=== PATIENT | female | born 1935 | race African-American/Black ===

== ENCOUNTER 2022-02-07 13:01 | Emergency (ER) | payer OTHER ==
--- OUTSIDE RECORDS SUMMARY | 2022-02-07 13:05 | XMS REPORT | Continuity of Care Document ---
:1935 Author Organization [facility] t Address [address] [place] [address] Dr. Cruz [address] [place] [address] Care Team Providers Name Role Phone DR SAM Attending Clinician Unavailable RUBEN RICHARDSON Attending Clinician Unavailable DR BRENDA Attending Clinician Unavailable DR José Miguel TRIANA Attending Clinician Unavailable Roberta GARZA Attending Clinician Unavailable DR SAM Admitting Clinician Unavailable DR BRENDA Admitting Clinician Unavailable DR José Miguel TRIANA Admitting Clinician Unavailable Roberta GARZA Admitting Clinician Unavailable Problems This patient has no known problems. Allergies, Adverse Reactions, Alerts Allergy Allergy Status Severity Reaction(s) Onset Inactive Treating Comm ents Source Name Type Date Date Clinician Aspirin DA Active Unknown [facility] Medications This patient has no known medications. Vital Signs Vital Name Observation Time Observation Value Comments Source Height 2021-04-30 09:47:00 165.1 CM Weight 2021-04-30 09:47:00 90.71 KG Procedures This patient has no known procedures. Encounters Start End Encounter Admission Attending Care Care Encounter Source Date/Time Date/Time Type Type Clinicians Facility Department ID 2021-04-30 2021-04-30 Outpatient E VANESSA VARGAS [facility] [id number] [facility] 09:46:00 11:30:00 [facility] 2020-10-26 2020-10-26 Emergency E DEMETRICE RICHARDSON FB FB [id number] FB 10:13:00 12:13:00 2018-10-23 2018-10-23 Outpatient E SHEIKH [facility] [id number] [facility] 03:21[facility]-20 2018-10-20 Outpatient E KAMILAH [facility] [id number] [facility] 09:25:00 12:35:00 [facility] Results Test Description Test Time Test Comments Results Result Comments Source XR HIP LEFT 2021-04-30 UNILATERAL 2 VWS 10:42:39 [facility] 1935 Sex: F EXAMINATION :XR PELVIS AP 1 VIEW *OW* (accession [id number]), XR HIP LEFT UNILATERAL 2 VWS *OW* (accession [id number])CLINICA L INDICATION:Female, 86 years old with Pain of left hip jointCOMPARISON: NoneFINDINGS:1 view pelvis and 2 views of the left hip were obtained.The bones are slightly demineralized. There is no acute fracture or dislocation. No focal lesion or destructive process seen. Surrounding bones and soft tissues are unremarkable.IMPRE SSION: No acute findings.Montanai keven signed by: Reny Finley MD 04/30/2021 10:42 AM CDT XR PELVIS AP 1 VIEW 2021-04-30 *OW* 10:42:39 [facility] : 1935 Sex: F EXAMINATION :XR PELVIS AP 1 VIEW *OW* (accession [id number]), XR HIP LEFT UNILATERAL 2 VWS *OW* (accession [id number])CLINICA L INDICATION:Female, 86 years old with Pain of left hip jointCOMPARISON: NoneFINDINGS:1 view pelvis and 2 views of the left hip were obtained.The bones are slightly demineralized. There is no acute fracture or dislocation. No focal lesion or destructive process seen. Surrounding bones and soft tissues are unremarkable.IMPRE SSION: No acute findings.Santhosh baca signed by: Reny Finley MD 04/30/2021 10:42 AM CDT URINALYSIS W/O MICROSCOPICOW 2021-04-30 10:40:00 Test Item Value Reference Range Interpretation Comme nts COLOR (test code = COLU) YELLOW YELLOW CLARITY (test code = CLA) CLEAR CLEAR GLUCOSE UR (test code = UA NEGATIVE NEGATIVE GLUCOSE) BILI UR (test code = BILE) NEGATIVE NEGATIVE KETONES UR (test code = LEXI) NEGATIVE NEGATIVE SP GRAVITY (test code = SPGR) 1.025 1.005-1.030 PH UR (test code = PH) 6.0 4.5-8.0 PROTEIN UR (test code = PU) 2+ NEGATIVE A NITRITE UR (test code = NITRITE) NEGATIVE NEGATIVE UROBIL UR (test code = GUROQ) 0.2 E.U./dL UROBIL UR (test code = GUROQC) UROBILINOGEN REFERENCE RANGE 0.2 - 1.0 EU/dL BLOOD UR (test code = UA BLOOD) TRACE-LYSED NEGATIVE A LEUK ES UR (test code = LEUK) TRACE NEGATIVE A TROPONIN [id number] 11:46:00 Test Item Value Reference Range Interpretation Comments TROPONIN I (test code = A84) <0.015 ng/mL 0.000-0.045 URINALYSIS W/O MICROSCOPICOW2018-10-20 10:40:00 Test Item Value Reference Range Interpretation Comments COLOR (test code = Yellow YELLOW COLU) CLARITY (test code = Clear CLEAR CLA) GLUCOSE UR (test Negative NEGATIVE code = UA GLUCOSE) BILI UR (test code = Negative NEGATIVE BILE) KETONES UR (test Negative NEGATIVE code = LEXI) SP GRAVITY (test 1.025 1.005-1.030 code = SPGR) PH UR (test code = 6.0 4.5-8.0 PH) PROTEIN UR (test 2+ NEGATIVE A code = PU) NITRITE UR (test Negative NEGATIVE code = NITRITE) UROBIL UR (test code 0.2 E.U./dL = GUROQ) UROBIL UR (test code UROBILINOGEN = GUROQC) REFERENCE RANGE 0.2 - 1.0 EU/dL BLOOD UR (test code Trace-lysed NEGATIVE = UA BLOOD) LEUK ES UR (test Negative NEGATIVE code = LEUK) BRAIN NATRIURETIC PROTEIN OW2018-10-20 10:23:00 Test Item Value Reference Range Interpretation Comments BNP (test code = OBNP) 22 pg/mL 0-50 INFLUENZA A AND B OW2018-10-20 10:09:00 Test Item Value Reference Range Interpretation Comments INFLUENZ A (test code = INFA) NEGATIVE NEGATIVE INFLUENZ B (test code = INFB) NEGATIVE NEGATIVE CHEM8+ i-STAT OW2018-10-20 10:08:00 Test Item Value Reference Range Interpretation Comments SODIUM (test code = AUGUSTIN) 140 mmol/L 138-146 POTASSIUM (test code = KI) 4.1 mmol/L 3.5-4.9 CHLORIDE (test code = CLI) 106 mmol/L 98-109 CA IONIZED (test code = ICAI) 1.27 mmol/L 1.12-1.32 GLUCOSE (test code = GLUI) 96 mg/dL 75-100 TCO2 (test code = TCO2) 23 mmol/L 24-29 L BUN (test code = BUN1) 21 mg/dL 8-26 CREATININE (test code = CREAI) 1.2 mg/dL 0.6-1.3 ANION GAP (test code = GANG) 16.0 mmol/L HGB (test code = MHB) 13.9 g/dL 12.0-17.0 HCT (test code = MHCT) 41.0 % 38.0-51.0 CBC (INCLUDES AUTOMATED DIFFERENTIAL) *2018-10-20 10:06:00 Test Item Value Reference Range Interpretation Comments WBC (test code = WBC) 4.3 10\\S\\3/uL 4.5-11.0 L RBC (test code = RBC) 4.61 10\\S\\6/uL 3.80-5.80 HGB (test code = HBG) 13.3 g/dL 12.0-15.5 HCT (test code = HCT) 39.5 % 35.0-44.0 MCV (test code = MCV) 85.7 fL 81.0-99.0 MCH (test code = MCH) 28.9 pg 27.0-31.0 MCHC (test code = MCHC) 33.7 g/dL 32.0-36.0 RDW (test code = RDW) 14.4 % 11.5-14.5 PLT (test code = PLT) 284 10\\S\\3/uL 130-400 MPV (test code = OMPV) 8.6 fL 6.2-10.2 NEUTROP # (test code = NE#) 2.1 10\\S\\3/uL 1.6-8.0 LYMPH # (test code = LY#) 1.8 10\\S\\3/uL 1.1-3.5 MID # (test code = GMID#) 0.3 10\\S\\3/uL 0.0-1.1 GRA % (test code = GRA%) 49.1 % 35.0-73.0 LYMPH % (test code = GLY%) 43.0 % 20.0-55.0 MID % (test code = GMID%) 7.9 % 0.0-10.0 XR CHEST 1 VIEW PORTABLE *OW*2018-10-20 10:02:01Portable AP chest, 1 viewLocation Code: [id number] HISTORY: [id number]: DyspneaCOMPARISON: NoneCOMMENT : The lungs are clear and well inflated. The costophrenic angles are sharp. Thecardiomediastinal silhouette is unremarkable. The bones are intact.IMPRESSION: No acute abnormalityPROTHROMBIN TIME i-STAT OW2018-10-20 10:01:00 Test Item Value Reference Range Interpretation Comments PT (test code = 11.8 s 10.0-13.0 PT1) INR (test code = 1.0 INR) INRH (test code = SUGGESTED INRH) THERAPEUTIC RANGE FOR INR: 2.5 - 3.5 For Patients with Prosthetic Valves or Patients with recurrent Thromboembolic Events 2.0 - 3.0 For Most Other Applications LACTIC ACID OW2018-10-20 10:00:00 Test Item Value Reference Range Interpretation Comments LACTATE (test code = BAO) 1.6 mmol/L 0.9-1.7 TISSUE [id number] 15:40:00Surgical Pathology Report Case: [id number] Authorizing Provider: Alexis Garza MD Collected: 09/14/2017 1135 Ordering Location: [facility] Endoscopy Received: 09/14/2017 1221 Services Pathologist: Christofer Britt MD Specimen: Stomach, BX STOMACH, BIOPSY-REACTIVE/CHEMICAL GASTROPATHY AND MILD CHRONIC INFLAMMATION- NO INTESTINAL METAPLASIA, NO DYSPLASIA AND NO MALIGNANCY IDENTIFIED- NO HELICOBACTER PYLORI ORGANISMS IDENTIFIED ON WARTHIN-STARRY STAIN Signing Pathologist Direct Phone Line: [phone] signed by Christofer Britt MD on 09/15/2017 at 3:40 [id number], [id number] painStomach biopsy The specimen is received in a formalin-filled container labeled with the patient's information and labeled "stomach biopsy" and consistsof three fragments of hughes-red soft tissue ranging from 0.1 to 0.3 cm, submitted entirely in A1. CG/ew Sections reveal fragments of benign antral mucosa with fibromuscular hyperplasia within the lamina propria along with mild reactive changes within the glandular epithelium consistent with reactive/chemical gastropathy. Mild chronic inflammation is seen within the lamina propria. No intestinal metaplasia is identified. No active gastritis is seen. No Helicobacter pylori organisms are identified on H&E and Warthin - Starry stain. Dysplasia and malignancy are not seen.The following special igna dies were performed on this case and the interpretation is incorporated in the diagnostic report above:IMMUNOHISTOCHEMISTRY/SPECIAL STAIN SUMMARY:The results of immunohistochemical studies and/or special stains are as follows: Warthin- Starry stain - No Helicobacter pylori organisms identifiedFL, UGI, AIR CONTRAST, WITHOUT [id number] 11:02:00Reason for Exam:->R10.13FINAL REPORT UGI barium study Clinical History: Epigastric pain Discussion: Effervescent crystals and barium are given to the patient to drink, without problems. The esophageal mucosa, gastroesophageal junction, stomach, duodenal bulb, duodenal c-loop, the position of the ligament of Treitz, and proximal jejunal loops are normal. Mild disorganization of the esophageal motilitywith prominent tertiary contractions seen throughout the examination. There is also delayed transit of contrast from the esophagus into the stomach. No gastroesophageal reflux is noted during the exam. 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 Signed: Marcus Fried MDReport Verified Date/Time: 09/08/2017 11:02:45 Reading Location: [address] Radiology Reading Room
--- NOTE | 2022-02-07 13:59 | RAD REPORT ---
EXAM DESCRIPTION: Rosie Single View02/07/2022 1:50 pm CLINICAL HISTORY: sob COMPARISON: none FINDINGS: The lung bases are hazy. The remainder of the lungs appear clear of acute infiltrate. The heart is normal size IMPRESSION: Lung bases are hazy. This may represent overlying soft tissue or infiltrates. PA and la teral chest series is recommended
[2022-02-07 14:26] LABS: Protime INR 0.95
[2022-02-07 14:53] LABS: Albumin 3.2 g/dL (3.4-5.0); Bilirubin Direct 0.2 mg/dL (0-0.2); Bilirubin Total 0.5 mg/dL (0.2-1.0); Protein, Total 7.3 g/dL (6.4-8.2); Troponin High Sensitivity 14.6 pg/mL (<58.9)
[2022-02-07 14:55] LABS: Potassium 4.3 mmol/L (3.5-5.1)
[2022-02-07 14:59] LABS: Absolute Lymphocytes (CBC) 1.1 K/uL (0.7-4.9); Hematocrit 36.7 % (36.0-45.0); Lymphocytes % 20.3 % (15.3-44.8); MPV 10.1 fL (7.6-11.3); RBC Red Blood Cell Count 4.36 M/uL (3.86-4.86)
--- NOTE | 2022-02-07 15:27 | RAD REPORT ---
EXAM DESCRIPTION: Rosie Pa And Lat (2 Views)02/07/2022 3:15 pm CLINICAL HISTORY: sob COMPARISON: February 07, 2022 chest x-ray FINDINGS: The lung bases are clear. The lungs appear clear of acute infiltrate. The heart is normal size. Aorta is tortuous/ectatic IMPRESSION: No acute abnormalities displayed
--- NOTE | 2022-02-07 15:47 | EDPHYS ---
Physician Documentation [facility] Name: Hailey Ambrose Age: 86 yrs Sex: Female : 1935 Arrival Date: 02/07/2022 Time: 13:05 Bed 7 Private MD: ED Physician Moo Pelletier HPI: 02/07 13:21 This 86 yrs old Black Female presents to ER via Ambulatory with complaints of Shortness pm1 Of Breath. 13:21 The patient has shortness of breath that occurred at home. Onset: The symptoms/episode pm1 began/occurred this morning. Duration: The symptoms 2-3 second duration after taking her medications this AM. The patient's shortness of breath has no apparent modifying factors. Associated signs and symptoms: Pertinent negatives: chest pain, non-productive cough, productive cough, fever, nausea, vomiting. Severity of symptoms: in the emergency department the symptoms have resolved Pain is currently a 0 / 10. The patient has been recently seen by a physician: with different complaint(s), Patient with a recent diagnosis of kidney cancer and is being treated by an oncologist in [place]. She reviewed her labs with her oncologist yesterday and the patient is concerned about her platelets and WBC level. Historical: - Allergies: 13:19 No Known Allergies; ab2 - Immunization history:: Adult Immunizations up to date. - Social history:: Smoking status: Patient denies any tobacco usage or history of. ROS: 13:21 Constitutional: Negative for fever, chills, and weight loss, Cardiovascular: Negative pm1 for chest pain, palpitations, and edema. 13:21 Abdomen/GI: Negative for abdominal pain, nausea, vomiting, diarrhea, and constipation, Back: Negative for injury and pain, MS/Extremity: Negative for injury and deformity, Skin: Negative for injury, rash, and discoloration, Neuro: Negative for headache, weakness, numbness, tingling, and seizure. 13:21 Respiratory: Positive for shortness of breath, Negative for cough. 13:21 All other systems are negative. Exam: 13:21 Constitutional: This is a well developed, well nourished patient who is awake, alert, pm1 and in no acute distress. Head/Face: Normocephalic, atraumatic. 13:21 Back: No spinal tenderness. No costovertebral tenderness. Full range of motion. Skin: Warm, dry with normal turgor. Normal color with no rashes, no lesions, and no evidence of cellulitis. MS/ Extremity: Pulses equal, no cyanosis. Neurovascular intact. Full, normal range of motion. 13:21 Cardiovascular: Exam negative for acute changes, Rate: normal, Rhythm: regular, Pulses: no pulse deficits are appreciated, Heart sounds: normal. 13:21 Respiratory: Exam negative for acute changes, respiratory distress, shortness of breath, Breath sounds: are clear throughout. 13:21 Abdomen/GI: Inspection: obese Palpation: abdomen is soft and non-tender, in all quadrants. 13:21 Neuro: Exam negative for acute changes, Orientation: is normal, Mentation: is normal, Motor: moves all fours. Vital Signs: 13:15 BP 146 / 76; Pulse 60; Resp 15; Pulse Ox 100% ; vg1 13:17 BP 155 / 66; Pulse 66; Resp 18; Temp 98.9; Pulse Ox 100% ; Weight 87.54 kg; Height 5 ab2 ft. 5 in. (165.10 cm); Pain 0/10; 13:17 Body Mass Index 32.12 (87.54 kg, 165.10 cm) ab2 MDM: 13:11 Patient medically screened. pm1 13:49 Data reviewed: vital signs. Data interpreted: Pulse oximetry: on room air is 100 %. pm1 Interpretation: normal. 15:44 Counseling: I had a detailed discussion with the patient and/or guardian regarding: the pm1 historical points, exam findings, and any diagnostic results supporting the discharge/admit diagnosis, lab results, radiology results, the need for outpatient follow up, to return to the emergency department if symptoms worsen or persist or if there are any questions or concerns that arise at home. 15:44 ED course: Patient reports history of abnormal kidney function tests since at least pm1 2003. Patient with her first ER visit in this hospital system, therefore I have no comparison labs. However patient states she is not concerned about those levels since she has had baseline elevated kidney function. She came to the ER with concerns over her WBC and platelets which are normal. Without knowledge of prior creatinine and BUN, I will give the patient NS 500 bolus, and discharge patient to follow-up with her oncologist. 15:44 ED course: Patient's shortness of breath was 2-3 seconds of duration without any other pm1 symptoms. Patient reports that her primary concern are her lab levels for wbc and platelets. PE score 0 points. 15:44 Differential diagnosis: Anxiety Reaction pneumonia, Pneumothorax pulmonary edema, pm1 Pulmonary Embolism Unstable Angina. 16:15 ED course: Patient had labs from December of this year. BUN and Cr today are at her pm1 baseline. 02/07 13:35 Order name: Chest Single View; Complete Time: 14:25 EDMS 02/07 14:20 Order name: Basic Metabolic Panel; Complete Time: 14:57 EDMS 02/07 14:20 Order name: Liver (Hepatic) Function; Complete Time: 14:57 EDMS 02/07 14:20 Order name: Troponin High Sensitivity; Complete Time: 14:57 EDMS 02/07 14:20 Order name: NT PRO-BNP; Complete Time: 14:57 EDMS 02/07 14:20 Order name: CBC with Automated Diff; Complete Time: 15:07 EDMS 02/07 14:20 Order name: Protime (+INR); Complete Time: 14:36 EDMS 02/07 13:21 Order name: EKG; Complete Time: 14:35 pm1 02/07 13:21 Order name: Cardiac monitoring; Complete Time: 13:46 pm1 02/07 13:21 Order name: EKG - Nurse/Tech; Complete Time: 13:46 pm1 02/07 13:21 Order name: Labs collected and sent; Complete Time: 14:03 pm1 02/07 13:21 Order name: O2 Per Protocol; Complete Time: 13:26 pm1 02/07 13:21 Order name: O2 Sat Monitoring; Complete Time: 13:26 pm1 02/07 14:26 Order name: Chest Pa And Lat (2 Views) XRAY; Complete Time: 15:32 pm1 Administered Medications: 16:13 Drug: NS 0.9% 500 ml Route: IV; Rate: bolus; Site: right antecubital; vg1 Disposition Summary: 02/07/22 15:47 Discharge Ordered Location: Home pm1 Problem: new pm1 Symptoms: have improved pm1 Condition: Stable pm1 Diagnosis - Shortness of breath pm1 Followup: pm1 - With: Emergency Department - When: As needed - Reason: Worsening of condition Followup: pm1 - With: Private Physician - When: 2 - 3 days - Reason: Recheck today's complaints, Continuance of care, Re-evaluation by your physician Discharge Instructions: - Discharge Summary Sheet pm1 - Shortness of Breath, Adult pm1 Forms: - Medication Reconciliation Form pm1 - Thank You Letter pm1 - Antibiotic Education pm1 - Prescription Opioid Use pm1 Addendum: 02/12/2022 18:59 Co-signature as Attending Physician, Moo Pelletier MD I agree with the assessment and c alaniz plan of care. Signatures: Dispatcher [employer] EDMS Moo Pelletier MD MD cha Marinas, Patrick, DISPLAY MANAGER DISPLAY MANAGER pm1 Bella Chucrh RN RN vg1 Dominguez Boswell ab2 Corrections: (The following items were deleted from the chart) 02/07 14:45 14:35 Chest Single View+RAD.RAD.BRZ ordered. EDMS EDMS 14:47 14:35 PROTIME (+INR)+COAG.LAB.BRZ ordered. EDMS EDMS 14:48 14:35 BASIC METABOLIC PANEL+C.LAB.BRZ ordered. EDMS EDMS 14:48 14:35 CBC+H.LAB.BRZ ordered. EDMS EDMS 14:48 14:35 HEPATIC FUNCTION+C.LAB.BRZ ordered. EDMS EDMS 14:48 14:35 PROBNP+C.LAB.BRZ ordered. EDMS EDMS 14:48 14:35 Troponin High Sensitivity+C.LAB.BRZ ordered. EDMS EDMS
--- NOTE | 2022-02-07 15:47 | ER ---
Nurse's Notes [facility] Name: Hailey Ambrose Age: 86 yrs Sex: Female : 1935 Arrival Date: 02/07/2022 Time: 13:05 Bed 7 Private MD: Diagnosis: Shortness of breath Presentation: 02/07 13:17 Chief complaint: Patient states: "I started getting SOB after breakfast this morning. I ab2 also want to check my WBC and platelet count because my Doctor told me they were low." Pt was recently diagnosed with kidney cancer. Coronavirus screen: Vaccine status: Patient reports receiving the 1st dose of the Covid vaccine. Client denies travel out of the [place] in the last 14 days. At this time, the client does not indicate any symptoms associated with coronavirus-19. Ebola Screen: Patient negative for fever greater than or equal to 101.5 degrees Fahrenheit, and additional compatible Ebola Virus Disease symptoms Patient denies exposure to infectious person. Patient denies travel to an Ebola-affected area in the 21 days before illness onset. No symptoms or risks identified at this time. Initial Sepsis Screen: Does the patient meet any 2 criteria? No. Patient's initial sepsis screen is negative. Does the patient have a suspected source of infection? No. Patient's initial sepsis screen is negative. Risk Assessment: Do you want to hurt yourself or someone else? Patient reports no desire to harm self or others. Onset of symptoms is unknown. 13:17 Method Of Arrival: Ambulatory ab2 13:17 Acuity: LEONARDO 3 ab2 Triage Assessment: 13:20 General: Appears in no apparent distress. comfortable, Behavior is calm, cooperative, ab2 appropriate for age. Pain: Denies pain. Cardiovascular: Denies chest pain, Patient's skin is warm and dry. Respiratory: Reports shortness of breath at rest Airway is patent Respiratory effort is even, unlabored, Respiratory pattern is regular, symmetrical, Onset: The symptoms/episode began/occurred this morning, the patient reports symptoms have resolved. Respiratory: Breath sounds are clear bilaterally. GI: No deficits noted. No signs and/or symptoms were reported involving the gastrointestinal system. : No deficits noted. No signs and/or symptoms were reported regarding the genitourinary system. Derm: Skin is healthy with good turgor, Skin is pink, warm \\T\\ dry. Historical: - Allergies: 13:19 No Known Allergies; ab2 - Immunization history:: Adult Immunizations up to date. - Social history:: Smoking status: Patient denies any tobacco usage or history of. Screenin:20 Abuse screen: Denies threats or abuse. Denies injuries from another. Nutritional ab2 screening: No deficits noted. Tuberculosis screening: No symptoms or risk factors identified. Fall Risk None identified. Assessment: 13:19 Pain: Denies pain. Respiratory: Airway is patent Respiratory effort is even, unlabored, ab2 Respiratory pattern is regular, symmetrical, 13:20 General: Appears in no apparent distress. comfortable, Behavior is calm, cooperative. vg1 Pain: Denies pain. Neuro: Level of Consciousness is awake, alert, obeys commands, Oriented to person, place, time, situation. Cardiovascular: Patient's skin is warm and dry. Rhythm is sinus bradycardia. Respiratory: Airway is patent Respiratory effort is even, unlabored, Breath sounds are clear bilaterally. GI: No signs and/or symptoms were reported involving the gastrointestinal system. : No signs and/or symptoms were reported regarding the genitourinary system. EENT: No signs and/or symptoms were reported regarding the EENT system. Derm: Skin is intact, is healthy with good turgor. Musculoskeletal: Circulation, motion, and sensation intact. 14:30 Reassessment: Patient appears in no apparent distress at this time. No changes from vg1 previously documented assessment. Patient and/or family updated on plan of care and expected duration. Pain level reassessed. Patient is alert, oriented x 3, equal unlabored respirations, skin warm/dry/pink. 15:30 Reassessment: Patient appears in no apparent distress at this time. Patient and/or vg1 family updated on plan of care and expected duration. Pain level reassessed. Patient is alert, oriented x 3, equal unlabored respirations, skin warm/dry/pink. 16:01 Reassessment: pt up for d/c, currently waiting for IV fluids to complete. vg1 Vital Signs: 13:15 BP 146 / 76; Pulse 60; Resp 15; Pulse Ox 100% ; vg1 13:17 BP 155 / 66; Pulse 66; Resp 18; Temp 98.9; Pulse Ox 100% ; Weight 87.54 kg; Height 5 ab2 ft. 5 in. (165.10 cm); Pain 0/10; 13:17 Body Mass Index 32.12 (87.54 kg, 165.10 cm) ab2 ED Course: 13:05 Patient arrived in ED. mr 13:11 Kory Jesus, ANAT is PHCP. pm1 13:11 Moo Pelletier MD is Attending Physician. pm1 13:13 Bella Church, RN is Primary Nurse. vg1 13:19 Triage completed. ab2 13:20 Arm band placed on right wrist. ab2 13:21 Patient has correct armband on for positive identification. Bed in low position. Call ab2 light in reach. Side rails up X2. Adult w/ patient. 13:21 No provider procedures requiring assistance completed. ab2 13:40 Missed attempt(s): 22 gauge in right forearm. vg1 13:50 Missed attempt(s): 24 gauge in left forearm. vg1 13:52 Chest Single View In Process Unspecified. EDMS 15:17 Chest Pa And Lat (2 Views) XRAY In Process Unspecified. EDMS Administered Medications: 16:13 Drug: NS 0.9% 500 ml Route: IV; Rate: bolus; Site: right antecubital; vg1 Outcome: 15:47 Discharge ordered by MD. pm1 17:14 Patient left the ED. ph Signatures: Dispatcher [employer] EDPA Jennings, Karen VuongShannon, RN RN ph Kory Jesus, ANAT SEARCH MARKETING SPECIALIST pm1 Bella Church, RN RN vg1 Dominguez Boswell ab2 Corrections: (The following items were deleted from the chart) 15:14 15:14 Reassessment: Patient appears in no apparent distress at this time. No changes vg1 from previously documented assessment. Patient and/or family updated on plan of care and expected duration. Pain level reassessed. Patient is alert, oriented x 3, equal unlabored respirations, skin warm/dry/pink. vg1
[2022-02-07] MEDS ORDERED: NA CHLORIDE 0.9% 500 ML ONE (16:07)
[2022-02-07 17:17] VITALS: O2SAT 100
[2022-02-07 17:19] VITALS: BP 155/66; TEMP 98.9
--- NOTE | 2022-02-09 09:42 | EKG ---
Test Date: 2022-02-07 Test Time: 13:31:02 Business Executive: ANAMARIA MEASUREMENT RESULTS: Intervals: Rate: 52 CT: 138 QRSD: 74 QT: 392 QTc: 364 [place]: P: 46 CT: 138 QRS: 4 T: 26 INTERPRETIVE STATEMENTS: Sinus bradycardia Minimal voltage criteria for LVH, may be normal variant Borderline ECG No previous ECG available for comparison Electronically Signed On 02-09-22 09:36:05 CDT by Jose Miguel Santos
== END 2022-02-07 17:14 | disposition home or self-care (01) ==
LOC: ER 13:01
DX: R06.02 Shortness of breath (principal)
CPT/HCPCS: 93005; 85025; 80048; 36415; 85610; 80076; 84484; 83880; 71045; 71046; 99284; J7040

== ENCOUNTER 2022-02-16 11:11 | Emergency (ER) | payer MEDICARE ==
--- OUTSIDE RECORDS SUMMARY | 2022-02-16 11:14 | XMS REPORT | Continuity of Care Document ---
:1935 Author Organization [facility] t Address [address] [place] [address] [address]. [address] [place] [address] Care Team Providers Name Role Phone DR SAM Attending Clinician Unavailable DR BRENDA Attending Clinician [...] Date Date Clinician Aspirin DA Active Unknown [facility] Medications This patient has no known medications. Vital Signs Vital Name Observation Time Observation Value Comments Source Height 2021-04-30 09:47:00 165.1 CM Weight 2021-04-30 09:47:00 90.71 KG Procedures This patient has no known procedures. Encounters Start End Encounter Admission Attending Care Care Encounter Source Date/Time Date/Time Type Type Clinicians Facility Department ID 2021-04-30 2021-04-30 [place] E [place] [id number] [facility] 09:46:00 11:30:00 [facility] [place] 2018-10-23 2018-10-23 Outpatient E [place] [facility] [id number] [facility] 03:21:00 04:10:00 [facility] 2018-10-20 2018-10-20 Outpatient [facility] [id number] [facility] 09:25:00 12:35:00 [facility] Results Test Description Test Time Test Comments Results Result Comments Source XR HIP LEFT 2021-04-30 UNILATERAL 2 VWS 10:42:39 [facility] 1935 Sex: F EXAMINATION :XR PELVIS AP 1 VIEW *OW* (accession [id number]), XR HIP LEFT UNILATERAL 2 VWS *OW* (accession [id number])CLINICA L INDICATION:Female, 86 years old with Pain of left hip jointCOMPARISON: NoneFINDINGS:1 view pelvis and 2 views of the left hip were obtained.The bones are slightly demineralized. There is no acute fracture or dislocation. No focal lesion or destructive process seen. Surrounding bones and soft tissues are unremarkable.IMPRE SSION: No acute findings.Electroni keven signed by: Reny Finley MD 04/30/2021 10:42 AM CDT XR PELVIS AP 1 VIEW 2021-04-30 *OW* 10:42:39 [facility] 1935 Sex: F EXAMINATION :XR PELVIS AP 1 VIEW *OW* (accession [id number]), XR HIP LEFT UNILATERAL 2 VWS *OW* (accession [id number])CLINICA L INDICATION:Female, 86 years old with Pain [...] code = LEUK) TRACE NEGATIVE A TROPONIN [id number] 11:46:00 Test Item Value Reference Range Interpretation [...] *OW*2018-10-20 10:02:01Portable AP chest, 1 viewLocation Code: [id number] HISTORY: [id number]: DyspneaCOMPARISON: NoneCOMMENT : The lungs are clear [...] code = BAO) 1.6 mmol/L 0.9-1.7 TISSUE [id number] 15:40:00Surgical Pathology Report Case: [id number] Authorizing Provider: Alexis Garza MD Collected: 09/14/2017 1135 Ordering Location: [facility] Endoscopy Received: 09/14/2017 1221 Services Pathologist: Christofer Britt MD Specimen: Stomach, BX STOMACH, BIOPSY-REACTIVE/CHEMICAL GASTROPATHY AND MILD CHRONIC INFLAMMATION- NO INTESTINAL METAPLASIA, NO DYSPLASIA AND NO MALIGNANCY IDENTIFIED- NO HELICOBACTER PYLORI ORGANISMS IDENTIFIED ON WARTHIN-STARRY STAIN Signing Pathologist Direct Phone Line: [phone] signed by Christofer Britt MD on 09/15/2017 at 3:40 [id number], [id number] painStomach biopsy The specimen is received in [...] and malignancy are not seen.The following special gina dies were performed on this case and the interpretation is incorporated in the diagnostic report above:IMMUNOHISTOCHEMISTRY/SPECIAL STAIN SUMMARY:The results of immunohistochemical studies and/or special stains are as follows: Warthin- Starry stain - No Helicobacter pylori organisms identifiedFL, UGI, AIR CONTRAST, WITHOUT [id number] 11:02:00Reason for Exam:->R10.13FINAL REPORT UGI barium study [...] MDReport Verified Date/Time: 09/08/2017 11:02:45 Reading Location: [address] Radiology Reading Room
--- NOTE | 2022-02-16 11:54 | EDPHYS ---
Physician Documentation [facility] Name: Hailey Ambrose Age: 86 yrs Sex: Female : 1935 Arrival Date: 02/16/2022 Time: 11:12 Bed DIS5 Private MD: ED Physician Joel Reece HPI: 02/16 11:53 This 86 yrs old Black Female presents to ER via Ambulatory with complaints of Allergic pm1 Reaction - to Medication. 11:53 Onset: The symptoms/episode began/occurred today. Associated signs and symptoms: pm1 Pertinent negatives: fever, headache, hives, rash, shortness of breath, swelling, vomiting. Possible causes: At home the patient or guardian has treated the symptoms with nothing. Severity of symptoms: in the emergency department the symptoms are unchanged. The patient has not experienced similar symptoms in the past. The patient has not recently seen a physician. Patient reports possible allergic reaction to a new medication. Patient's reported symptom is a bump to her left lower gums that is painful. Historical: - Allergies: 12:02 No Known Allergies; ll1 - PMHx: 12:02 Hypertensive disorder; ll1 - PSHx: 12:02 Unable to Obtain; ll1 - Immunization history:: Client reports receiving the 2nd dose of the Covid vaccine. - Social history:: Smoking status: Patient denies any tobacco usage or history of. ROS: 11:53 Constitutional: Negative for fever, chills, and weight loss. pm1 11:53 Neck: Negative for injury, pain, and swelling, Cardiovascular: Negative for chest pain, palpitations, and edema, Respiratory: Negative for shortness of breath, cough, wheezing, and pleuritic chest pain, Abdomen/GI: Negative for abdominal pain, nausea, vomiting, diarrhea, and constipation, MS/Extremity: Negative for injury and deformity, Skin: Negative for injury, rash, and discoloration, Neuro: Negative for headache, weakness, numbness, tingling, and seizure. 11:53 ENT: Positive for bump on her gums, Negative for sore throat, difficulty swallowing, difficulty handling secretions, hoarseness. 11:53 All other systems are negative. Exam: 11:53 Constitutional: This is a well developed, well nourished patient who is awake, alert, pm1 and in no acute distress. Head/Face: Normocephalic, atraumatic. 11:53 Back: No spinal tenderness. No costovertebral tenderness. Full range of motion. Skin: Warm, dry with normal turgor. Normal color with no rashes, no lesions, and no evidence of cellulitis. MS/ Extremity: Pulses equal, no cyanosis. Neurovascular intact. Full, normal range of motion. 11:53 Eyes: Exam is negative for acute changes, Periorbital structures: appear normal, Pupils: no acute changes, Extraocular movements: no acute changes, Conjunctiva: no acute changes, no injection. 11:53 ENT: Dental exam: abscess, specifically in the lower left first bicuspid (#21), small and all pus expressed with pressure to surrounding area. 11:53 Cardiovascular: Exam negative for acute changes, Rate: normal, Rhythm: regular, Pulses: no pulse deficits are appreciated. 11:53 Respiratory: Exam negative for acute changes, respiratory distress, shortness of breath. 11:53 Neuro: Exam negative for acute changes, Orientation: is normal, Mentation: is normal, Motor: is normal, moves all fours. Vital Signs: 12:00 BP 145 / 67; Pulse 68; Resp 16; Temp 97.6; Pulse Ox 97% ; Pain 4/10; ll1 MDM: 11:52 Counseling: I had a detailed discussion with the patient and/or guardian regarding: the pm1 historical points, exam findings, and any diagnostic results supporting the discharge/admit diagnosis, the need for outpatient follow up, for definitive care, a dentist, to return to the emergency department if symptoms worsen or persist or if there are any questions or concerns that arise at home. 11:53 Patient medically screened. pm1 12:00 Data reviewed: vital signs. Data interpreted: Pulse oximetry: on room air is 97 %. pm1 Interpretation: normal. Administered Medications: No medications were administered Disposition: 21:30 Co-signature as Attending Physician, Joel HENAO was immediately available on-site ms3 in the Emergency Department for consultation in the care of the patient.. Disposition Summary: 02/16/22 11:53 Discharge Ordered Location: Home pm1 Problem: new pm1 Symptoms: have improved pm1 Condition: Stable pm1 Diagnosis - Periapical abscess without sinus pm1 Followup: pm1 - With: Emergency Department - When: As needed - Reason: Worsening of condition Followup: pm1 - With: Private Physician - When: 2 - 3 days - Reason: Recheck today's complaints, Continuance of care, Re-evaluation by your physician Discharge Instructions: - Discharge Summary Sheet pm1 - Dental Abscess pm1 Forms: - Medication Reconciliation Form pm1 - Thank You Letter pm1 - Antibiotic Education pm1 - Prescription Opioid Use pm1 Prescriptions: - Augmentin 875-125 mg Oral Tablet - take 1 tablet by ORAL route every 12 hours for 10 days; 20 tablet; Refills: 0, pm1 Product Selection Permitted - Tramadol 50 mg Oral Tablet - take 1 tablet by ORAL route every 8 hours as needed; 12 tablet; Refills: 0, pm1 Product Selection Permitted Signatures: Kory Jesus NP DURABILITY ENGINEER pm1 Liza Jaime RN RN ll1 Joel Reece DO DO ms3
--- NOTE | 2022-02-16 12:04 | ER ---
Nurse's Notes [facility] Name: Hailey Ambrose Age: 86 yrs Sex: Female : 1935 Arrival Date: 02/16/2022 Time: 11:12 Bed DIS5 Private MD: Diagnosis: Periapical abscess without sinus Presentation: 02/16 12:00 Chief complaint: Patient states: L lower jaw pain and swelling. Thinks it might be a ll1 reaction to her chemo meds. Coronavirus screen: Vaccine status: Patient reports receiving the 2nd dose of the covid vaccine. Client denies travel out of the [place] in the last 14 days. At this time, the client does not indicate any symptoms associated with coronavirus-19. Ebola Screen: Patient denies travel to an Ebola-affected area in the 21 days before illness onset. Onset: The symptoms/episode began/occurred gradually. Anaphylaxis evaluation, no signs or symptoms of anaphylaxis were noted. Initial Sepsis Screen: Does the patient meet any 2 criteria? No. Patient's initial sepsis screen is negative. Does the patient have a suspected source of infection? Yes: Other: gum pain/swelling. Risk Assessment: Do you want to hurt yourself or someone else? Patient reports no desire to harm self or others. Onset of symptoms is unknown. 12:00 Method Of Arrival: Ambulatory ll1 12:00 Acuity: LEONARDO 4 ll1 Triage Assessment: 12:02 General: Appears uncomfortable, Behavior is calm, cooperative, appropriate for age. ll1 Pain: Complains of pain in L jaw Quality of pain is described as aching. EENT: Reports pain in left jaw. Historical: - Allergies: 12:02 No Known Allergies; ll1 - PMHx: 12:02 Hypertensive disorder; ll1 - PSHx: 12:02 Unable to Obtain; ll1 - Immunization history:: Client reports receiving the 2nd dose of the Covid vaccine. - Social history:: Smoking status: Patient denies any tobacco usage or history of. Screenin:03 Abuse screen: Denies threats or abuse. Nutritional screening: No deficits noted. ll1 Tuberculosis screening: No symptoms or risk factors identified. Fall Risk Total Valenzuela Fall Scale indicates No Risk (0-24 pts). Assessment: 12:03 Respiratory: Airway is patent Respiratory effort is even, unlabored, Breath sounds are ll1 clear bilaterally. Vital Signs: 12:00 BP 145 / 67; Pulse 68; Resp 16; Temp 97.6; Pulse Ox 97% ; Pain 4/10; ll1 ED Course: :12 Patient arrived in ED. ds1 11:29 [facility] pm1 11:29 Joel Reece DO is Attending Physician. pm1 12:02 Triage completed. ll1 12:02 Arm band placed on Patient placed in an exam room, on a stretcher. ll1 12:03 Patient has correct armband on for positive identification. Bed in low position. ll1 12:03 No provider procedures requiring assistance completed. Patient did not have IV access ll1 during this emergency room visit. Administered Medications: No medications were administered Outcome: :53 Discharge ordered by MD. pm1 12:03 Discharged to home ambulatory. ll1 12:03 Condition: stable 12:03 Discharge instructions given to patient, family, Instructed on discharge instructions, follow up and referral plans. no drinking with medication, no driving heavy equipment, medication usage, Demonstrated understanding of instructions, follow-up care, medications, Prescriptions given X 2. 12:03 Patient left the ED. ll1 Signatures: Alina Lopez ds1 Kory Jesus NP REGISTERED ACCOUNT ADMINISTRATOR pm1 Liza Jaime RN RN ll1
[2022-02-16 12:09] VITALS: BP 145/67; TEMP 97.6; O2SAT 97
== END 2022-02-16 12:03 | disposition home or self-care (01) ==
LOC: ER 11:11
DX: K04.7 Periapical abscess without sinus (principal); I10 Essential (primary) hypertension
CPT/HCPCS: 99282

== ENCOUNTER 2022-05-12 09:22 | Emergency (ER) | payer OTHER ==
--- NOTE | 2022-05-12 10:53 | RAD REPORT ---
EXAM DESCRIPTION: Rosie Hilton And Natasha (2 Views)05/12/2022 10:16 am CLINICAL HISTORY: Cough COMPARISON: January 2022 FINDINGS: The lungs appear clear of acute infiltrate. The heart is normal size IMPRESSION: No acute abnormalities displayed
[2022-05-12 11:23] LABS: Protime INR 1.06
[2022-05-12 11:24] LABS: Absolute Lymphocytes (CBC) 0.8 K/uL (0.7-4.9); Hematocrit 34.4 % (36.0-45.0); Lymphocytes % 27.1 % (15.3-44.8); MCV 87.1 fL (80-100); MPV 10.4 fL (7.6-11.3); RBC Red Blood Cell Count 3.95 M/uL (3.86-4.86)
[2022-05-12 11:41] LABS: Albumin 2.9 g/dL (3.4-5.0); Bilirubin Total 0.8 mg/dL (0.2-1.0); Potassium 4.4 mmol/L (3.5-5.1); Protein, Total 6.1 g/dL (6.4-8.2); Troponin High Sensitivity 14.8 pg/mL (<58.9)
--- NOTE | 2022-05-12 12:11 | ER ---
Nurse's Notes [facility] Name: Hailey Ambrose Age: 87 yrs Sex: Female : 1935 Arrival Date: 05/12/2022 Time: 09:24 Bed 20 Private MD: Diagnosis: Acute upper respiratory infection, unspecified-presumptive coronavirus Presentation: 05/12 09:49 Chief complaint: Patient states: she started feeling short winded with a cold last ap3 night. Patient reports her neighbor came to visit over the weekend who ended up coming down with COVID. Patient is also complaining of body aches and runny nose. Coronavirus screen: Client presents with at least one sign or symptom that may indicate coronavirus-19. Standard/surgical mask placed on the client. Ebola Screen: No symptoms or risks identified at this time. Initial Sepsis Screen: Does the patient meet any 2 criteria? No. Patient's initial sepsis screen is negative. Does the patient have a suspected source of infection? No. Patient's initial sepsis screen is negative. Risk Assessment: Do you want to hurt yourself or someone else? Patient reports no desire to harm self or others. Onset of symptoms was May 11, 2022. 09:49 Method Of Arrival: Ambulatory ap3 09:49 Acuity: LEONARDO 3 ap3 Triage Assessment: 09:56 General: Appears in no apparent distress. Behavior is calm, cooperative. Pain: ap3 Complains of pain in chest and generalized body aches. Neuro: Level of Consciousness is awake, alert, obeys commands, Oriented to person, place, time, Gait is steady. Cardiovascular: Reports chest pain, Patient's skin is warm and dry. Respiratory: Reports cough that is Airway is patent. Respiratory: Respiratory effort is even, unlabored. Historical: - Allergies: 09:54 No Known Allergies; ap3 - PMHx: 09:54 Hypertensive disorder; Kidney disease; kidney cancer; ap3 - Immunization history:: Client reports having NOT received the Covid vaccine. - Social history:: Smoking status: Patient denies any tobacco usage or history of. Screenin:57 Abuse screen: Denies threats or abuse. Nutritional screening: No deficits noted. ap3 Tuberculosis screening: No symptoms or risk factors identified. 11:04 Fall Risk Secondary diagnosis (15 points) impaired mobility. tw2 Assessment: 11:05 General: Appears in no apparent distress. slender, well groomed, Behavior is calm, tw2 cooperative, appropriate for age. Pain: Denies pain. Pain does not radiate. Pain began last night. Neuro: Level of Consciousness is awake, alert, obeys commands, Oriented to person, place, time, situation. Cardiovascular: Patient's skin is warm and dry. Respiratory: Reports shortness of breath at rest. GI: No signs and/or symptoms were reported involving the gastrointestinal system. EENT: Reports nasal discharge that is watery Parent/caregiver reports the patient having. 12:12 Reassessment: Patient appears in no apparent distress at this time. No changes from tw2 previously documented assessment. Patient and/or family updated on plan of care and expected duration. Pain level reassessed. Patient is alert, oriented x 3, equal unlabored respirations, skin warm/dry/pink. 12:31 Reassessment: Patient appears in no apparent distress at this time. No changes from tw2 previously documented assessment. Patient and/or family updated on plan of care and expected duration. Pain level reassessed. Patient is alert, oriented x 3, equal unlabored respirations, skin warm/dry/pink. Vital Signs: 09:49 BP 121 / 69; Pulse 61; Resp 17; Temp 97.9; Pulse Ox 99% ; Weight 86.18 kg; Height 5 ft. ap3 5 in. (165.10 cm); 11:15 BP 129 / 56; Pulse 56; Resp 16; Pulse Ox 100% on R/A; tw2 12:11 BP 127 / 58; Pulse 55; Resp 17; Pulse Ox 100% on R/A; tw2 09:49 Body Mass Index 31.62 (86.18 kg, 165.10 cm) ap3 ED Course: 09:24 Patient arrived in ED. rg4 09:34 Kory Jesus NP is PHCP. pm1 09:34 Atilio Tyler MD is Attending Physician. pm1 09:54 Triage completed. ap3 09:57 Patient maintains SpO2 saturation greater than 95% on room air. ap3 09:57 Arm band placed on right wrist. ap3 10:15 Bed in low position. Call light in reach. quality assurance monitor on. Pulse ox on. NIBP on. tw2 10:18 Chest Pa And Lat (2 Views) XRAY In Process Unspecified. EDMS 10:36 Bess Timmons, RN is Primary Nurse. tw2 11:00 Missed attempt(s): 20 gauge in right forearm. Bleeding controlled, band aid applied, tw2 catheter tip intact. Missed attempt(s): 22 gauge in right forearm. notified JESSICA Roman of need for IV at this time.. Bleeding controlled, band aid applied, catheter tip intact. 11:25 Inserted saline lock: 22 gauge in left forearm, using aseptic technique. ,using aseptic tw2 technique. JESSICA De Jesus Blood collected. 12:31 No provider procedures requiring assistance completed. IV discontinued, intact, tw2 bleeding controlled, No redness/swelling at site. Pressure dressing applied. Administered Medications: 12:20 Drug: Tussionex Pennkinetic ER (chlorpheniramine-hydrocodone) Suspension 5 ml Route: PO;tw2 12:31 Follow up: Response: No adverse reaction tw2 Medication: 11:06 VIS not applicable for this client. tw2 Outcome: 12:10 Discharge ordered by MD. pm1 12:32 Discharged to home ambulatory, with significant other. tw2 12:32 Condition: stable 12:32 Discharge instructions given to patient, significant other, Instructed on discharge instructions, follow up and referral plans. Demonstrated understanding of instructions, follow-up care, medications, Prescriptions given X 1. 12:32 Patient left the ED. tw2 Signatures: Dispatcher [employer] EDNM Kory Jesus, ANAT OFFAL WORKER pm1 Bess Timmons, JESSICA RN tw2 Rubia Church 4 Blanquita Calvert RN RN ap3
--- NOTE | 2022-05-12 12:11 | EDPHYS ---
Physician Documentation [facility] Name: Hailey Ambrose Age: 87 yrs Sex: Female : 1935 Arrival Date: 05/12/2022 Time: 09:24 Bed 20 Private MD: ED Physician Atilio Tyler HPI: 05/12 10:09 This 87 yrs old Black Female presents to ER via Ambulatory with complaints of Chest pm1 Pain, Runny Nose. 10:09 The patient or guardian reports chest pain that is located primarily in the mid-sternal pm1 area. Onset: yesterday. The pain does not radiate. Associated signs and symptoms: Pertinent positives: cough, shortness of breath, runny nose, Pertinent negatives: nausea, vomiting. The chest pain is described as sharp. Duration: The patient or guardian reports a single episode. Modifying factors: the symptoms are aggravated by cough. Severity of pain: in the emergency department the pain is unchanged. The patient has not experienced similar symptoms in the past. The patient has not recently seen a physician. with URI last week but she is concerned that she may have covid. Historical: - Allergies: 09:54 No Known Allergies; ap3 - PMHx: 09:54 Hypertensive disorder; Kidney disease; kidney cancer; ap3 - Immunization history:: Client reports having NOT received the Covid vaccine. - Social history:: Smoking status: Patient denies any tobacco usage or history of. ROS: 10:09 Constitutional: Negative for fever, chills, and weight loss. pm1 10:09 Abdomen/GI: Negative for abdominal pain, nausea, vomiting, diarrhea, and constipation, Back: Negative for injury and pain, MS/Extremity: Negative for injury and deformity, Skin: Negative for injury, rash, and discoloration. 10:09 ENT: Positive for rhinorrhea. 10:09 Cardiovascular: Positive for chest pain, Negative for edema, palpitations. 10:09 Respiratory: Positive for cough, shortness of breath. 10:09 All other systems are negative. Exam: 10:09 Constitutional: This is a well developed, well nourished patient who is awake, alert, pm1 and in no acute distress. Head/Face: Normocephalic, atraumatic. 10:09 Back: No spinal tenderness. No costovertebral tenderness. Full range of motion. pm1 Skin: Warm, dry with normal turgor. Normal color with no rashes, no lesions, and no evidence of cellulitis. MS/ Extremity: Pulses equal, no cyanosis. Neurovascular intact. Full, normal range of motion. 10:09 Eyes: Exam is negative for acute changes, Extraocular movements: no acute changes, Conjunctiva: no acute changes, no injection. 10:09 Cardiovascular: Exam negative for acute changes, Rate: bradycardic, Rhythm: regular, Pulses: no pulse deficits are appreciated. 10:09 Respiratory: Exam negative for acute changes, respiratory distress, shortness of breath, Breath sounds: are clear throughout. 10:09 Abdomen/GI: Inspection: abdomen appears normal, Palpation: abdomen is soft and non-tender, in all quadrants. 10:09 Neuro: Exam negative for acute changes, Orientation: is normal, Mentation: is normal, Motor: is normal, moves all fours. Vital Signs: 09:49 BP 121 / 69; Pulse 61; Resp 17; Temp 97.9; Pulse Ox 99% ; Weight 86.18 kg; Height 5 ft. ap3 5 in. (165.10 cm); 11:15 BP 129 / 56; Pulse 56; Resp 16; Pulse Ox 100% on R/A; tw2 12:11 BP 127 / 58; Pulse 55; Resp 17; Pulse Ox 100% on R/A; tw2 09:49 Body Mass Index 31.62 (86.18 kg, 165.10 cm) ap3 MDM: 10:03 Patient medically screened. pm1 12:01 ED course: Discussed with the patient the current findings and we are still pending the pm1 covid test. Discussed with the patient that her history of cancer and shortness of breath makes me consider PE as a differential. Patient reports that her shortness of breath is inability to get phlegm up. Patient does not want a PE CT test and actually wants to go home now because her , who is also in the ER was just diagnosed with covid. She would like me to call her later with the results. Informed the patient that if her shortness of breath worsens that she should return for reevaluation and possible CT chest at that time. Patient refused possible treatment for covid, monoclonal antibodies and paxlovid. 12:01 Data reviewed: vital signs. Data interpreted: Pulse oximetry: on room air is 99 %. pm1 Interpretation: normal. 12:01 Counseling: I had a detailed discussion with the patient and/or guardian regarding: the pm1 historical points, exam findings, and any diagnostic results supporting the discharge/admit diagnosis, lab results. 05/12 10:02 Order name: Troponin High Sensitivity; Complete Time: 11:54 pm05/12 10:02 Order name: CBC with Diff; Complete Time: 11:33 pm05/12 10:02 Order name: CMP; Complete Time: 11:54 pm05/12 10:02 Order name: COVID-19 SARS RT PCR (Document "Date of Onset" if Symptomatic) pm1 05/12 10:02 Order name: Flu; Complete Time: 11:54 pm05/12 10:02 Order name: Strep; Complete Time: 11:33 pm05/12 10:02 Order name: Chest Pa And Lat (2 Views) XRAY; Complete Time: 11:18 pm05/12 10:31 Order name: IV Saline Lock; Complete Time: 11:16 pm05/12 10:31 Order name: PT-INR; Complete Time: 11:33 pm1 05/12 10:32 Order name: EKG; Complete Time: 10:33 pm1 05/12 10:32 Order name: EKG - Nurse/Tech; Complete Time: 11:04 pm05/12 11:33 Order name: Throat Culture EDMS EC:06 Rate is 54 beats/min. Rhythm is regular, Sinus bradycardia with No ectopy. QRS [place] is pm1 Normal. ND interval is normal. QRS interval is normal. QT interval is normal. No Q waves. T waves are Normal. No ST changes noted. Clinical impression: Sinus bradycardia. Administered Medications: 12:20 Drug: Tussionex Pennkinetic ER (chlorpheniramine-hydrocodone) Suspension 5 ml Route: PO;tw2 12:31 Follow up: Response: No adverse reaction tw2 Disposition: 18:48 Co-signature as Attending Physician, Atilio Tyler MD. rn Disposition Summary: 05/12/22 12:10 Discharge Ordered Location: Home pm1 Problem: new pm1 Symptoms: have improved pm1 Condition: Stable pm1 Diagnosis - Acute upper respiratory infection, unspecified - presumptive coronavirus pm1 Followup: pm1 - With: Emergency Department - When: As needed - Reason: Worsening of condition Followup: pm1 - With: Private Physician - When: 2 - 3 days - Reason: Recheck today's complaints, Continuance of care, Re-evaluation by your physician Discharge Instructions: - Discharge Summary Sheet pm1 - Upper Respiratory Infection, Adult pm1 - COVID-19 pm1 - COVID-19 Frequently Asked Questions pm1 - COVID-19: Quarantine vs. Isolation - [facility] [place] pm1 Forms: - Medication Reconciliation Form pm1 - Thank You Letter pm1 - Antibiotic Education pm1 - Prescription Opioid Use pm1 Prescriptions: - Guaifenesin AC 10-100 mg/5 mL Oral Liquid - take 10 milliliters by ORAL route every 4 hours As needed; 240 milliliter; pm1 Refills: 0, Product Selection Permitted Signatures: Dispatcher [employer] EDMS Atilio Tyler MD MD rn Marinas, Patrick, SENIOR BUSINESS DEVELOPMENT ANALYST SENIOR BUSINESS DEVELOPMENT ANALYST pm1 Bess Timmons RN RN tw2 Blanquita Calvert RN RN ap3 Corrections: (The following items were deleted from the chart) 12:09 12:01 ED course: Discussed with the patient the current findings and we are still pm1 pending the covid test. Discussed with the patient that her history of cancer and shortness of breath makes me consider PE as a differential. Patient reports that her shortness of breath is inability to get phlegm up. Patient does not want a PE CT test and actually wants to go home now because her , who is also in the ER was just diagnosed with covid. She would like me to call her later with the results. Informed the patient that if her shortness of breath worsens that she should return for reevaluation and possible CT chest at that time. pm1
[2022-05-12] MEDS ORDERED: HYDROCODONE/CHLORPHEN 5 ML/OSYR ONE (12:34)
[2022-05-12 12:38] VITALS: TEMP 97.9
[2022-05-12 12:41] VITALS: O2SAT 100
[2022-05-12 12:43] VITALS: BP 127/58
--- NOTE | 2022-05-13 07:52 | EKG ---
Test Date: 2022-05-12 Test Time: 11:04:03 Football Coach: JASE MEASUREMENT RESULTS: Intervals: Rate: 54 [place]: 138 QRSD: 82 QT: 416 QTc: 394 [place]: P: 59 [place]: 138 QRS: 26 T: 53 INTERPRETIVE STATEMENTS: Sinus bradycardia Otherwise normal ECG Compared to ECG 02/07/2022 13:31:02 Left ventricular hypertrophy no longer present Electronically Signed On 05-13-22 07:48:33 CDT by Jose Miguel Santos
== END 2022-05-12 12:32 | disposition home or self-care (01) ==
LOC: ER 09:22
DX: J06.9 Acute upper respiratory infection, unspecified (principal); R07.89 Other chest pain; R09.89 Other specified symptoms and signs involving the circulatory and respiratory systems; R06.02 Shortness of breath; I10 Essential (primary) hypertension; N28.9 Disorder of kidney and ureter, unspecified; U07.1 COVID-19
CPT/HCPCS: 93005; 87070; 85025; 36415; 85610; 87081; 84484; 80053; 87804 ×2; 71046; U0003; 99285

== ENCOUNTER → 2023-12-03 | Emergency (ER) | payer OTHER ==
[~2023-12-03] MED LIST: CYCLOBENZAPRINE 10 MG TAB ONE; FAMOTIDINE 20 MG/2 ML VIAL IV ONE; NA CHLORIDE 0.9% 1,000 ML ONE
--- NOTE | 2023-12-03 14:14 | RAD REPORT ---
EXAM DESCRIPTION: CT - Head Brain Wo Cont - 12/03/2023 2:00 pm CLINICAL HISTORY: Head injury status post fall COMPARISON: none TECHNIQUE: Computed axial tomography of the head was obtained. IV contrast was not requested. All CT scans are performed using dose optimization technique as appropriate and may include automated exposure control or mA/KV adjustment according to patient size. FINDINGS: An intracranial bleed is not seen The ventricles are normal in caliber No significant hypodense areas within the brain visualized No extra-axial fluid collection is noted. Fluid within the sinuses/ mastoids is not seen IMPRESSION: No acute intracranial abnormality is seen If patient's symptoms persist MRI of the brain would be recommended
[2023-12-03 14:38] LABS: Absolute Lymphocytes (CBC) 1.8 K/uL (0.7-4.9); Hematocrit 37.9 % (36.0-45.0); Lymphocytes % 15.6 % (15.3-44.8); MCV 89.6 fL (80-100); MPV 8.3 fL (7.6-11.3); Platelets 191 thou/uL (152-406); RBC Red Blood Cell Count 4.23 M/uL (3.86-4.86)
[2023-12-03 14:55] LABS: Albumin 2.9 g/dL (3.4-5.0); Bilirubin Direct 0.2 mg/dL (0-0.2); Bilirubin Indirect, Calculated 0.2 mg/dL (0.2-0.8); Bilirubin Total 0.4 mg/dL (0.2-1.0); Troponin High Sensitivity 8.6 pg/mL (<58.9)
[2023-12-03 14:56] LABS: Magnesium 2.3 mg/dL (1.6-2.4)
--- NOTE | 2023-12-03 15:00 | RAD REPORT ---
EXAM DESCRIPTION: FRANKYHumbertot Single View12/03/2023 2:21 pm CLINICAL HISTORY: Chest pain COMPARISON: 2021 FINDINGS: The lungs appear clear of acute infiltrate. The heart is normal size Dilatation of descending thoracic aorta without significant change
[2023-12-03 15:15] LABS: SARS-COV-2 RT PCR NEGATIVE (NEGATIVE)
[2023-12-03 15:46] LABS: Specific Gravity 1.016 (1.005-1.030); Urine Bacteria None Seen /HPF (<20); Urine Bilirubin NEGATIVE (Negative); Urine Blood Negative (Negative); Urine Clarity Clear (Clear); Urine Color Light-Yellow (Yellow); Urine Glucose NEGATIVE (Negative); Urine Mucus Slight /HPF (None Seen); Urine Protein 1+ (Negative); Urine RBC <5 /HPF (None Seen); Urine Urobilinogen Normal (Normal)
--- NOTE | 2023-12-03 16:57 | ER ---
Nurse's Notes [facility] Name: Hailey Ambrose Age: 88 yrs Sex: Female : 1935 Arrival Date: 12/03/2023 Time: 13:18 Bed 6 Private MD: Diagnosis: Orthostatic hypotension;Fall on same level from slipping, tripping and stumbling without subsequent striking against object Presentation: 12/03 13:41 Chief complaint: Chief complaint: Patient states: "I fell straight back on Wednesday aa5 and I hit my head, I was doing fine but today my whole back hurts and when I look down I see carla flashing colors". 13:47 Coronavirus screen: At this time, the client does not indicate any symptoms associated aa5 with coronavirus-19. Ebola Screen: Patient denies travel to an Ebola-affected area in the 21 days before illness onset. Initial Sepsis Screen: Does the patient meet any 2 criteria? No. Patient's initial sepsis screen is negative. Does the patient have a suspected source of infection? No. Patient's initial sepsis screen is negative. Risk Assessment: Do you want to hurt yourself or someone else? Patient reports no desire to harm self or others. Onset of symptoms was November 2023. 13:47 Acuity: LEONARDO 3 aa5 13:47 Method Of Arrival: Wheelchair aa5 Historical: - Allergies: 14:00 No Known Allergies; rs5 - PMHx: 13:47 Hypertensive disorder; kidney cancer; kidney disease; aa5 - PSHx: 14:00 None; rs5 - Immunization history:: Adult Immunizations up to date. - Social history:: Smoking status: Patient denies any tobacco usage or history of. Screenin:45 [facility] ED Fall Risk Assessment (Adult) History of falling in the last 3 months, rs5 including since admission No falls in past 3 months (0 pts) Confusion or Disorientation No (0 pts) Intoxicated or Sedated No (0 pts) Impaired Gait Yes (1 pt) Mobility Assist Device Used Yes (1 pt) Altered Elimination No (0 pt) Score/Fall Risk Level 0 - 2 = Low Risk Oriented to surroundings, Maintained a safe environment. 13:45 Abuse screen: Denies threats or abuse. Nutritional screening: No deficits noted. rs5 Tuberculosis screening: No symptoms or risk factors identified. Assessment: 13:45 General: Appears in no apparent distress. comfortable, Behavior is calm, cooperative. rs5 Pain: Complains of pain in right low back Pain radiates to right leg Pain currently is 3 out of 10 on a pain scale. Quality of pain is described as aching, Pain began 2-3 days ago. Is continuous, Aggravated by increased activity, repositioning. Neuro: Level of Consciousness is awake, alert, obeys commands, Oriented to person, place, time, situation. Cardiovascular: Heart tones S1 S2 present Patient's skin is warm and dry. Rhythm is regular. Respiratory: Airway is patent Respiratory effort is even, labored, Respiratory pattern is regular, symmetrical, Breath sounds are clear bilaterally. 13:45 GI: Abdomen is round non-distended, Bowel sounds present X 4 quads. Abd is soft and non rs5 tender X 4 quads. : No signs and/or symptoms were reported regarding the genitourinary system. EENT: No signs and/or symptoms were reported regarding the EENT system. Derm: Skin is intact, Skin is dry, Skin is normal, Skin temperature is warm. Musculoskeletal: Range of motion: intact in all extremities. 14:50 Reassessment: No changes from previously documented assessment. rs5 16:01 Reassessment: Patient and/or family updated on plan of care and expected duration. Pain rs5 level reassessed. Patient is alert, oriented x 3, equal unlabored respirations, skin warm/dry/pink. Vital Signs: 13:47 BP 134 / 77; Pulse 82; Resp 16 S; Temp 98.3(O); Pulse Ox 99% on R/A; aa5 14:50 BP 130 / 85 Supine; Pulse 79; Resp 17; Pulse Ox 100% on R/A; bc6 14:50 BP 125 / 71 Sitting; Pulse 79; Resp 16; Pulse Ox 100% on R/A; bc6 14:50 BP 98 / 63 Standing; Pulse 93; Resp 17; Pulse Ox 100% on R/A; bc6 16:09 BP 128 / 80; Pulse 80; Resp 14; Pulse Ox 99% ; ko1 ED Course: 13:21 Patient arrived in ED. mg5 13:30 Priya Ni PA-C is PHCP. sb4 13:30 Joel Reece DO is Attending Physician. sb4 13:41 Arm band placed on. aa5 13:45 Patient has correct armband on for positive identification. Placed in gown. Bed in low rs5 position. Call light in reach. Side rails up X2. 13:48 Triage completed. aa5 13:51 Lissy Loera, RN is Primary Nurse. ko1 14:01 CT Head Brain wo Cont In Process Unspecified. EDMS 14:23 Chest Single View XRAY In Process Unspecified. EDMS 14:33 Basic Metabolic Panel Sent. ko1 14:33 CBC with Diff Sent. ko1 14:33 Hepatic Function Sent. ko1 14:33 Magnesium Sent. ko1 14:33 Troponin High Sensitivity Sent. ko1 14:33 Inserted saline lock: 20 gauge in right forearm, using aseptic technique. rs5 14:36 COVID-19/FLU A+B/RSV Sent. ko1 16:16 No provider procedures requiring assistance completed. rs5 17:20 Provided Education on: follow up. as6 17:20 IV discontinued, intact, bleeding controlled, No redness/swelling at site. Pressure as6 dressing applied. Administered Medications: 14:35 Drug: Cyclobenzaprine PO 10 mg PO once Route: PO; ko1 17:14 Follow up: Response: No adverse reaction as6 15:16 Drug: NS 0.9% IV 1000 ml IV at 1 bolus Per protocol; 1000 mL bolus Route: IV; Rate: 1 rs5 bolus; Site: right forearm; 17:13 Follow up: Response: No adverse reaction; IV Status: Completed infusion; IV Intake: as6 1000ml 16:50 Drug: Famotidine IVP 20 mg IVP once; dilute with 10 mL 0.9% NaCl; give over 2 minutes rs5 Route: IVP; Site: right forearm; 17:13 Follow up: Response: No adverse reaction as6 Medication: 16:16 VIS not applicable for this client. rs5 Intake: 17:13 IV: 1000ml; Total: 1000ml. as6 Outcome: 16:57 Discharge ordered by . sb4 17:21 Discharged to home ambulatory, with significant other, as6 17:21 Condition: stable 17:22 Discharge instructions given to patient, significant other, Instructed on discharge as6 instructions, follow up and referral plans. medication usage, Demonstrated understanding of instructions, follow-up care, medications, Prescriptions given X 2, 17:23 Patient left the ED. as6 Signatures: Dispatcher [employer] EDLeila Orozco RN RN aa5 Low Walker RN RN as6 Lissy Loera RN RN Priya Hook, PAAma PAmAa sb4 Faustino Fontaine RN RN rs5 Kelsey Torres 6 Mary Call mg5 Corrections: (The following items were deleted from the chart) 13:48 13:41 Chief complaint: aa5 aa5
--- NOTE | 2023-12-03 16:58 | EDPHYS ---
Physician Documentation [facility] Name: Hailey Ambrose Age: 88 yrs Sex: Female : 1935 Arrival Date: 12/03/2023 Time: 13:18 Bed 6 Private MD: ED Physician Joel Reece HPI: 12/03 13:49 This 88 yrs old Black Female presents to ER via Wheelchair with complaints of Fall sb4 Injury. 13:49 Details of fall: The patient fell from an upright position, while standing. Onset: The sb4 symptoms/episode began/occurred 2 day(s) ago. Associated injuries: The patient sustained injury to the head. 14:09 patient states that she went to open the refrigerator, missed the handle, and fell sb4 backwards onto her head. she did not lose consciousness or have any significant pain. states that today she woke up feeling stiff, weak, and experiencing pain in her entire back. also reports seeing strange colors when she looks down. Historical: - Allergies: 14:00 No Known Allergies; rs5 - PMHx: 13:47 Hypertensive disorder; kidney cancer; kidney disease; aa5 - PSHx: 14:00 None; rs5 - Immunization history:: Adult Immunizations up to date. - Social history:: Smoking status: Patient denies any tobacco usage or history of. ROS: 14:09 Constitutional: Negative for fever, chills, and weight loss, sb4 14:09 Back: Positive for pain at rest, pain with movement, 14:09 Neuro: Positive for visual changes, 14:09 All other systems are negative, Exam: 14:09 Constitutional: This is a well developed, well nourished patient who is awake, alert, sb4 and in no acute distress. Head/Face: Normocephalic, atraumatic. Eyes: Extra-ocular motions intact. Periorbital areas with no swelling, redness, or edema. ENT: Mucous membranes moist. Cardiovascular: Regular rate and rhythm with a normal S1 and S2. Respiratory: Lungs have equal breath sounds bilaterally, clear to auscultation and percussion. No rales, rhonchi or wheezes noted. No increased work of breathing, no retractions or nasal flaring. Abdomen/GI: Soft, non-tender, no distension. Skin: Warm, dry with normal turgor. Normal color with no rashes, no lesions, and no evidence of cellulitis. MS/ Extremity: Pulses equal, no cyanosis. Neurovascular intact. Full, normal range of motion. Neuro: Awake and alert, GCS 15, oriented to person, place, time, and situation. Motor strength 5/5 in all extremities. Sensory grossly intact. 14:09 Back: pain, that is mild, of the left scapular area, right scapular area, left subscapular area, right subscapular area, left low back, left mid back, right mid back and right low back, ROM is normal, normal spinal alignment noted, CVA tenderness, is absent, vertebral tenderness, is not appreciated, muscle spasm, is not present, Straight leg raises: of both lower extremities does not illicit pain, Vital Signs: 13:47 BP 134 / 77; Pulse 82; Resp 16 S; Temp 98.3(O); Pulse Ox 99% on R/A; aa5 14:50 BP 130 / 85 Supine; Pulse 79; Resp 17; Pulse Ox 100% on R/A; bc6 14:50 BP 125 / 71 Sitting; Pulse 79; Resp 16; Pulse Ox 100% on R/A; bc6 14:50 BP 98 / 63 Standing; Pulse 93; Resp 17; Pulse Ox 100% on R/A; bc6 16:09 BP 128 / 80; Pulse 80; Resp 14; Pulse Ox 99% ; ko1 MDM: 13:41 Patient medically screened. sb4 14:09 Differential diagnosis: closed head injury, contusion, fracture, sprain, strain. sb4 16:57 Data reviewed: vital signs, nurses notes, lab test result(s), EKG, radiologic studies, sb4 and as a result, I will discharge patient. Counseling: I had a detailed discussion with the patient and/or guardian regarding the historical points, exam findings, and any diagnostic results supporting the discharge/admit diagnosis, lab results, radiology results, to return to the emergency department if symptoms worsen or persist or if there are any questions or concerns that arise at home. 12/03 13:48 Order name: Basic Metabolic Panel; Complete Time: 15:02 sb4 12/03 13:48 Order name: CBC with Diff; Complete Time: 14:51 sb4 12/03 13:48 Order name: Hepatic Function; Complete Time: 15:02 sb4 12/03 13:48 Order name: Magnesium; Complete Time: 15:02 sb4 12/03 13:48 Order name: Troponin High Sensitivity; Complete Time: 15:02 sb4 12/03 13:48 Order name: COVID-19/FLU A+B/RSV; Complete Time: 15:16 sb4 12/03 13:48 Order name: UAM; Complete Time: 15:56 sb4 12/03 13:48 Order name: CT Head Brain wo Cont; Complete Time: 14:14 sb4 12/03 13:48 Order name: Chest Single View XRAY; Complete Time: 15:02 sb4 12/03 13:48 Order name: EKG; Complete Time: 13:49 sb4 12/03 13:48 Order name: Cardiac monitoring; Complete Time: 14:05 sb4 12/03 13:48 Order name: EKG - Nurse/Tech; Complete Time: 14:50 sb4 12/03 13:48 Order name: IV Saline Lock; Complete Time: 14:33 sb4 12/03 13:48 Order name: Labs collected and sent; Complete Time: 14:33 sb4 12/03 13:48 Order name: O2 Per Protocol; Complete Time: 14:05 sb4 12/03 13:48 Order name: O2 Sat Monitoring; Complete Time: 14:05 sb4 12/03 13:48 Order name: Orthostatics; Complete Time: 14:50 sb4 12/03 16:40 Order name: Misc. Order: ambulate; Complete Time: 16:50 sb4 EC:50 Rate is 73 beats/min. Rhythm is regular, Normal Sinus Rhythm. [place] interval is normal at sb4 160 msec. QRS interval is normal at 70 msec. QT interval is normal at 370 msec. No Q waves. T waves are Normal. No ST changes noted. Clinical impression: Normal ECG and No evidence of ischemia. Interpreted by me. Reviewed by me. Administered Medications: 14:35 Drug: Cyclobenzaprine PO 10 mg PO once Route: PO; ko1 17:14 Follow up: Response: No adverse reaction as6 15:16 Drug: NS 0.9% IV 1000 ml IV at 1 bolus Per protocol; 1000 mL bolus Route: IV; Rate: 1 rs5 bolus; Site: right forearm; 17:13 Follow up: Response: No adverse reaction; IV Status: Completed infusion; IV Intake: as6 1000ml 16:50 Drug: Famotidine IVP 20 mg IVP once; dilute with 10 mL 0.9% NaCl; give over 2 minutes rs5 Route: IVP; Site: right forearm; 17:13 Follow up: Response: No adverse reaction as6 Disposition: 14:54 I was immediately available on-site in the Emergency Department for consultation in the ms3 care of the patient. Disposition Summary: 12/03/23 16:57 Discharge Ordered Notes: Location: Home sb4 Problem: new sb4 Symptoms: are unchanged sb4 Condition: Stable sb4 Diagnosis - Orthostatic hypotension sb4 - Fall on same level from slipping, tripping and stumbling without subsequent sb4 striking against object Followup: sb4 - With: Emergency Department - When: As needed - Reason: Trouble breathing, Worsening of condition Discharge Instructions: - Discharge Summary Sheet sb4 - Orthostatic Hypotension sb4 - Fall Prevention in the Home, Adult, [id number] sb4 Forms: - Medication Reconciliation Form sb4 - Thank You Letter sb4 - Antibiotic Education sb4 - Prescription Opioid Use sb4 - Patient Portal Instructions sb4 - Leadership Thank You Letter sb4 Prescriptions: - Hydroxyzine HCl 25 mg Oral tablet - take 1 tablet ORAL route once daily at bedtime As needed; 30 tablet; Refills: sb4 0, Product Selection Permitted Signatures: Dispatcher [employer] Leila Larson, RN RN aa5 Joel Reece DO DO ms3 Lissy Loera RN RN koPriya Albright PAAma PAAma sb4 Faustino Fontaine RN RN rs5 Low Walker RN as6
[2023-12-03 18:04] VITALS: BP 98/63; TEMP 98.3; O2SAT 100
--- NOTE | 2023-12-06 15:08 | EKG ---
Test Date: 2023-12-03 Test Time: 14:46:26 Call Center Supervisor: JAD MEASUREMENT RESULTS: Intervals: Rate: 73 [place]: 160 QRSD: 70 QT: 370 QTc: 407 [place]: P: 65 [place]: 160 QRS: -12 T: 69 INTERPRETIVE STATEMENTS: Normal sinus rhythm Normal ECG Compared to ECG 05/12/2022 11:04:03 Sinus bradycardia no longer present Electronically Signed On 12-06-23 15:02:05 COPYWRITING INTERN by Alejandro Wilcox
== END ==
LOC: ER 13:18
DX: I95.1 Orthostatic hypotension (principal); M54.9 Dorsalgia, unspecified; W01.0XXA Fall on same level from slipping, tripping and stumbling without subsequent striking against object, initial encounter; Z11.52 Encounter for screening for COVID-19
CPT/HCPCS: 85025; 81001; 80048; 36415; 83735; 80076; 84484; 0241U; 70450; 71045; J7030; 93005

== ENCOUNTER → 2023-12-21 | Emergency (ER) | payer OTHER ==
[~2023-12-21] MED LIST changes: -FAMOTIDINE 20 MG/2 ML VIAL IV ONE; +HYDROCODONE/APAP 5/325 MG TAB ONE; -NA CHLORIDE 0.9% 1,000 ML ONE
--- NOTE | 2023-12-21 09:34 | RAD REPORT ---
EXAM DESCRIPTION: CT - Spine Lumbar Wo Con - 12/21/2023 9:25 am CLINICAL HISTORY: Radiculopathy. PAIN COMPARISON: No comparisons TECHNIQUE: Axial noncontrast CT imaging of the lumbar spine was performed with coronal and sagittal re-formatted images. All CT scans are performed using dose optimization technique as appropriate and may include automated exposure control or mA/KV adjustment according to patient size. FINDINGS: No acute lumbar spine fracture seen. No aggressive marrow pattern or malalignment. Paraspinal tissues are normal in thickness. No paraspinal abscess or hematoma seen. Posterior disc bulges are present lower lumbar levels. Vacuum disc degeneration at L2-3 and L3-4. Sma ll endplate osteophytes are present L2-3 and L3-4. Moderate central canal narrowing is seen at L3-4. Surgically absent left kidney. IMPRESSION: No acute lumbar spine finding. 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
--- NOTE | 2023-12-21 09:57 | RAD REPORT ---
EXAM DESCRIPTION: RAD - Knee Right 3 View - 12/21/2023 9:44 am CLINICAL HISTORY: PAIN COMPARISON: No comparisons FINDINGS: Mild tricompartmental arthritic changes are present. No fracture, dislocation or joint eff usion.
--- NOTE | 2023-12-21 09:57 | RAD REPORT ---
EXAM DESCRIPTION: RAD - Knee Left 3 View - 12/21/2023 9:44 am CLINICAL HISTORY: PAIN COMPARISON: No comparisons FINDINGS: Moderate tricompartmental osteoarthritis is present, greatest medially. No fracture, dislo cation or joint effusion.
--- NOTE | 2023-12-21 10:36 | EDPHYS ---
Physician Documentation [facility] Name: Hailey Ambrose Age: 88 yrs Sex: Female : 1935 Arrival Date: 12/21/2023 Time: 08:54 Bed 4 Private MD: Alyssa Sanchez ED Physician Goyo Cole HPI: 12/21 09:20 This 88 yrs old Black Female presents to ER via Ambulatory with complaints of Facial rt Injury, Back Pain. 09:20 Patient presents to the ED about 2 weeks following a fall. Patient states that she has rt had back pain, tingling sensation to her right knee since the fall. States that the pain to the back has worsened. Is unclear if she had imaging of her back. States that Motrin, Tylenol not adequately relieved her symptoms. Pain is aching nature, nonradiating, no other aggravating or alleviating factors.. Historical: - Allergies: 09:14 No Known Allergies; ll1 - PMHx: 09:14 Hypertensive disorder; kidney cancer; kidney disease; ll1 - Immunization history:: Adult Immunizations up to date. - Social history:: Smoking status: Patient denies any tobacco usage or history of. ROS: 09:20 Constitutional: Negative for fever, chills, and weight loss, Cardiovascular: Negative rt for chest pain, palpitations, and edema, Respiratory: Negative for shortness of breath, cough, wheezing, and pleuritic chest pain, Abdomen/GI: Negative for abdominal pain, nausea, vomiting, diarrhea, and constipation, Skin: Negative for injury, rash, and discoloration, Neuro: Negative for headache, weakness, numbness, tingling, and seizure, Psych: Negative for depression, anxiety, suicide ideation, homicidal ideation, and hallucinations, 09:20 Back: Positive for pain at rest, pain with movement, 09:20 MS/extremity: Positive for pain, Negative for contusion, Exam: 09:20 Constitutional: This is a well developed, well nourished patient who is awake, alert, rt and in no acute distress. Head/Face: Normocephalic, atraumatic. Chest/axilla: Normal chest wall appearance and motion. Nontender with no deformity. No lesions are appreciated. Cardiovascular: Regular rate and rhythm with a normal S1 and S2. No gallops, murmurs, or rubs. Normal PMI, no JVD. No pulse deficits. Respiratory: Lungs have equal breath sounds bilaterally, clear to auscultation and percussion. No rales, rhonchi or wheezes noted. No increased work of breathing, no retractions or nasal flaring. Abdomen/GI: Soft, non-tender, with normal bowel sounds. No distension or tympany. No guarding or rebound. No evidence of tenderness throughout. Skin: Warm, dry with normal turgor. Normal color with no rashes, no lesions, and no evidence of cellulitis. Neuro: Awake and alert, GCS 15, oriented to person, place, time, and situation. Cranial nerves II-XII grossly intact. Motor strength 5/5 in all extremities. Sensory grossly intact. Cerebellar exam normal. Normal gait. Psych: Awake, alert, with orientation to person, place and time. Behavior, mood, and affect are within normal limits. 09:20 Neck: No posterior cervical midline tenderness, 09:20 Back: Midline tenderness to the lower lumbar region, no paraspinal tenderness, step-offs, no thoracic tenderness, 09:20 Musculoskeletal/extremity: No swelling, deformity, tenderness to palpation to the right knee. Vital Signs: 09:14 BP 123 / 107; Pulse 84; Resp 17; Temp 97.4; Pulse Ox 98% on R/A; Weight 80.74 kg; ll1 Height 5 ft. 5 in. ; Pain 9/10; 09:51 BP 125 / 62; Pulse 78; Resp 18; Pulse Ox 99% on R/A; ph 09:14 Body Mass Index 29.62 (80.74 kg, 165.1 cm) ll1 09:14 Pain Scale: Adult ll1 MDM: 09:07 Patient medically screened. rt 10:49 Differential diagnosis: Compression fracture, disc bulge, muscle spasm. Data reviewed: rt vital signs, nurses notes, radiologic studies. Independent interpretation of the following test(s) in the Emergency Department CT Scan: My interpretation is No fracture seen on interpretation of x-ray, CT scan images. Care significantly affected by the following chronic conditions: Hypertension. Counseling: I had a detailed discussion with the patient and/or guardian regarding the historical points, exam findings, and any diagnostic results supporting the discharge/admit diagnosis, radiology results, the need for outpatient follow up, to return to the emergency department if symptoms worsen or persist or if there are any questions or concerns that arise at home. Response to treatment: the patient's symptoms have markedly improved after treatment. 12/21 09:15 Order name: Knee Right 3 View XRAY; Complete Time: 09:59 rt 12/21 09:15 Order name: CT Lumbar Spine Wo Con; Complete Time: 09:59 rt 12/21 09:34 Order name: Knee Left 3 View XRAY; Complete Time: :59 rt Administered Medications: 09:46 Drug: Island PO 5 mg-325 mg 1 tabs PO once Route: PO; ph 09:46 Drug: Cyclobenzaprine PO 5 mg PO once Route: PO; ph Disposition Summary: 12/21/23 10:35 Discharge Ordered Notes: Location: Home rt Problem: new rt Symptoms: have improved rt Condition: Stable rt Diagnosis - Low back pain rt - Bilateral knee pain rt Followup: rt - With: Private Physician - When: 2 - 3 days - Reason: Discharge Instructions: - Discharge Summary Sheet rt - Acute Back Pain, Adult rt - Acute Knee Pain, Adult rt Forms: - Medication Reconciliation Form rt - Thank You Letter rt - Antibiotic Education rt - Prescription Opioid Use rt - Patient Portal Instructions rt - Leadership Thank You Letter rt Prescriptions: - Tramadol 50 mg Oral Tablet - take 1 tablet ORAL route every 8 hours as needed; 12 tablet; Refills: 0, rt Product Selection Permitted - Cyclobenzaprine 5 mg Oral Tablet - take 1 tablet ORAL route 3 times per day As needed; 15 tablet; Refills: 0, rt Product Selection Permitted Signatures: Dispatcher [employer] Shannon Gamboa RN RN Liza Calles RN RN 1 Goyo Cole MD MD rt
--- NOTE | 2023-12-21 10:36 | ER ---
Nurse's Notes [facility] Name: Hailey Ambrose Age: 88 yrs Sex: Female : 1935 Arrival Date: 12/21/2023 Time: 08:54 Bed 4 Private MD: Alyssa Sanchez Diagnosis: Low back pain;Bilateral knee pain Presentation: 12/21 09:14 Chief complaint: Patient states: Back and R knee still hurts from her fall 2 weeks ago. ll1 Come here after accident, Aleve and Tylenol not helping. Coronavirus screen: Client denies travel out of the [place] in the last 14 days. At this time, the client does not indicate any symptoms associated with coronavirus-19. Ebola Screen: Patient denies travel to an Ebola-affected area in the 21 days before illness onset. Initial Sepsis Screen: Does the patient meet any 2 criteria? No. Patient's initial sepsis screen is negative. Does the patient have a suspected source of infection? No. Patient's initial sepsis screen is negative. Risk Assessment: Do you want to hurt yourself or someone else? Patient reports no desire to harm self or others. Onset of symptoms was December 03, 2023. 09:14 Method Of Arrival: Ambulatory ll1 09:14 Acuity: LEONARDO 3 ll1 Historical: - Allergies: 09:14 No Known Allergies; ll1 - PMHx: 09:14 Hypertensive disorder; kidney cancer; kidney disease; ll1 - Immunization history:: Adult Immunizations up to date. - Social history:: Smoking status: Patient denies any tobacco usage or history of. Screenin:41 [facility] ED Fall Risk Assessment (Adult) History of falling in the last 3 months, ph including since admission Yes- single mechanical fall (1 pt) Confusion or Disorientation No (0 pts) Intoxicated or Sedated No (0 pts) Impaired Gait Yes (1 pt) Mobility Assist Device Used Yes (1 pt) Altered Elimination No (0 pt) Score/Fall Risk Level 3 or more points = High Risk Oriented to surroundings, Maintained a safe environment, Provided non-skid footwear, Hourly rounding (assess needs \T\ fall precautionary measures) done, Used ambulatory aids as needed (educated on \T\ assisted with). Abuse screen: Denies threats or abuse. Denies injuries from another. Nutritional screening: No deficits noted. Tuberculosis screening: No symptoms or risk factors identified. Assessment: 09:50 General: Appears in no apparent distress. Behavior is calm, cooperative, appropriate ph for age. Pain: Complains of pain in back and right and left knees. Neuro: Level of Consciousness is awake, alert, obeys commands, Oriented to person, place, time, situation. Cardiovascular: Capillary refill < 3 seconds in bilateral fingers Patient's skin is warm and dry. Respiratory: Airway is patent Respiratory effort is even, unlabored, Respiratory pattern is regular, symmetrical. Derm: Skin is pink, warm \T\ dry. Vital Signs: 09:14 BP 123 / 107; Pulse 84; Resp 17; Temp 97.4; Pulse Ox 98% on R/A; Weight 80.74 kg; ll1 Height 5 ft. 5 in. ; Pain 9/10; 09:51 BP 125 / 62; Pulse 78; Resp 18; Pulse Ox 99% on R/A; ph 09:14 Body Mass Index 29.62 (80.74 kg, 165.1 cm) ll1 09:14 Pain Scale: Adult ll1 ED Course: 08:57 Patient arrived in ED. mr 08:58 Alyssa Sanchez is Private Physician. mr 08:58 Goyo Cole MD is Attending Physician. rt 09:13 Arm band placed on Patient placed in an exam room, on a stretcher. ll1 09:15 Triage completed. ll1 09:26 CT Lumbar Spine Wo Con In Process Unspecified. EDMS 09:29 Shannon Vuong, RN is Primary Nurse. ph 09:42 Patient has correct armband on for positive identification. Placed in gown. Bed in low ph position. Call light in reach. Side rails up X2. Pulse ox on. NIBP on. Door closed. Noise minimized. Warm blanket given. 09:46 Knee Right 3 View XRAY In Process Unspecified. EDMS 09:46 Knee Left 3 View XRAY In Process Unspecified. EDMS 10:50 No provider procedures requiring assistance completed. Patient did not have IV access ph during this emergency room visit. Administered Medications: 09:46 Drug: Ethel PO 5 mg-325 mg 1 tabs PO once Route: PO; ph 09:46 Drug: Cyclobenzaprine PO 5 mg PO once Route: PO; ph Medication: 09:41 VIS not applicable for this client. ph Outcome: 10:35 Discharge ordered by MD. rt 10:50 Discharged to home ambulatory, ph 10:50 Condition: good 10:50 Discharge instructions given to patient, Instructed on discharge instructions, follow up and referral plans. medication usage, Demonstrated understanding of instructions, follow-up care, medications, Prescriptions given X 2, 10:51 Patient left the ED. ph Signatures: Dispatcher [employer] EDMO Karen Jennings, Reg Reg mr Shannon Vuong RN RN ph Liza Jaime RN RN ll1 Goyo Cole MD MD rt Corrections: (The following items were deleted from the chart) 09:16 09:14 Onset of symptoms was December 07, 2023 [facility] ll
[2023-12-21 11:14] VITALS: BP 125/62; TEMP 97.4; O2SAT 99
== END ==
LOC: ER 08:54
DX: M54.50 Low back pain, unspecified (principal); M25.562 Pain in left knee; M25.561 Pain in right knee
CPT/HCPCS: 72131

== ENCOUNTER → 2024-01-19 | Emergency (ER) | payer OTHER ==
--- NOTE | 2024-01-19 10:00 | ER ---
Nurse's Notes [facility] Name: Hailey Ambrose Age: 88 yrs Sex: Female : 1935 Arrival Date: 01/19/2024 Time: 08:14 Bed 20 Private MD: Diagnosis: Pain in left foot Presentation: 01/18 08:40 Chief complaint: Patient states: L leg goes out, feels weak, and numb at times for ll1 awhile now. Fell again, wants to be checked. Coronavirus screen: Client denies travel out of the [place] in the last 14 days. At this time, the client does not indicate any symptoms associated with coronavirus-19. Ebola Screen: Patient denies travel to an Ebola-affected area in the 21 days before illness onset. Initial Sepsis Screen: Does the patient meet any 2 criteria? No. Patient's initial sepsis screen is negative. Does the patient have a suspected source of infection? No. Patient's initial sepsis screen is negative. Risk Assessment: Do you want to hurt yourself or someone else? Patient reports no desire to harm self or others. Onset of symptoms was January 11, 2024. 08:40 Method Of Arrival: Wheelchair ll1 08:40 Acuity: LEONARDO 3 ll1 Triage Assessment: 08:40 General: Appears uncomfortable, Behavior is calm, cooperative, appropriate for age. ll1 Pain: Complains of pain in left leg Quality of pain is described as aching. Musculoskeletal: Circulation, motion, and sensation intact. Capillary refill < 3 seconds, Reports weakness in left leg numbness in left leg pain in left leg. Injury Description: Bruise. Historical: - Allergies: 08:39 No Known Allergies; ll1 - PMHx: 08:39 Hypertensive disorder; kidney cancer; kidney disease; ll1 08:39 myeloma; ll1 - Immunization history:: Adult Immunizations up to date. - Social history:: Smoking status: Patient denies any tobacco usage or history of. Assessment: 09:17 General: Appears in no apparent distress. comfortable, Behavior is calm, cooperative. nj1 Pain: Denies pain. Neuro: Level of Consciousness is awake, alert, obeys commands, Oriented to person, place, time, situation. Cardiovascular: Patient's skin is warm and dry. Respiratory: Airway is patent Respiratory effort is even, unlabored. Vital Signs: 08:40 BP 99 / 56; Pulse 75; Resp 16; Temp 97.6; Pulse Ox 98% ; Weight 77.11 kg; Height 5 ft. ll1 5 in. ; Pain 7/10; 09:18 BP 96 / 59; Pulse 66; Resp 17; Pulse Ox 98% on R/A; MAP 71 mmHg; nj1 08:40 Body Mass Index 28.29 (77.11 kg, 165.1 cm) ll1 08:40 Pain Scale: Adult [facility] ED Course: 08:19 Patient arrived in ED. mg5 08:21 Arm band placed on Patient placed in an exam room, on a stretcher. ll1 08:24 Caleb Larson MD is Attending Physician. sp3 08:41 Triage completed. ll1 09:09 Marina Reece, RN is Primary Nurse. ld1 09:12 Primary Nurse role handed off by Marina Reece, JESSICA nj1 09:12 Randi Elliott, JESSICA is Primary Nurse. nj1 09:24 Foot Left 3 View XRAY In Process Unspecified. EDMS Administered Medications: No medications were administered Outcome: 10:00 Discharge ordered by . sp3 10:26 Patient left the ED. nj1 Signatures: Dispatcher [employer] EDMS Liza Jaime RN RN [facility] Marina Reece, JESSICA RN [facility] Caleb Larson MD MD spRandi Geiger RN RN nj Mary Call mg5
--- NOTE | 2024-01-19 10:00 | EDPHYS ---
Physician Documentation [facility] Name: Hailey Ambrose Age: 88 yrs Sex: Female : 1935 Arrival Date: 01/19/2024 Time: 08:14 Bed 20 Private MD: ED Physician Caleb Larson HPI: 01/18 09:56 This 88 yrs old Black Female presents to ER via Wheelchair with complaints of Fall sp3 Injury, Leg Pain. 09:56 88-year-old female with history of hypertension, multiple myeloma being treated by Dr. nayeli Donahue now presents to the ED with chief complaints of chronic left foot pain for approximately 2 months. Patient states that she has had x-rays but not "from the top". Dr. Emanuel has told her that this is due to her the myeloma. She denies any direct trauma, other neurological complaints including numbness tingling, loss of bowel or bladder control, low back pain, or any other neurological symptoms. She denies syncope, near syncope, headache, memory loss, changes in speech, other weakness, facial droop, dysarthria, or any other signs or symptoms related to stroke. ROS otherwise negative for headache, fever, URI symptoms, chest pain, shortness breath, abdominal pain, nausea, vomiting, diarrhea, rash, known sick contacts, travel history, or any other signs or symptoms on ROS at this time.. Historical: - Allergies: 08:39 No Known Allergies; ll1 - PMHx: 08:39 Hypertensive disorder; kidney cancer; kidney disease; ll1 08:39 myeloma; ll1 - Immunization history:: Adult Immunizations up to date. - Social history:: Smoking status: Patient denies any tobacco usage or history of. ROS: 09:57 Constitutional: Negative for fever, chills, and weight loss, Eyes: Negative for injury, sp3 pain, redness, and discharge, ENT: Negative for injury, pain, and discharge, Neck: Negative for injury, pain, and swelling, Cardiovascular: Negative for chest pain, palpitations, and edema, Respiratory: Negative for shortness of breath, cough, wheezing, and pleuritic chest pain, Abdomen/GI: Negative for abdominal pain, nausea, vomiting, diarrhea, and constipation, Back: Negative for injury and pain, Skin: Negative for injury, rash, and discoloration, Neuro: Negative for headache, weakness, numbness, tingling, and seizure, Psych: Negative for depression, anxiety, suicide ideation, homicidal ideation, and hallucinations, Allergy/Immunology: Negative for hives, rash, and allergies, Endocrine: Negative for neck swelling, polydipsia, polyuria, polyphagia, and marked weight changes, 09:57 All other systems are negative, Exam: 09:58 Constitutional: This is a well developed, well nourished patient who is awake, alert, sp3 and in no acute distress. Head/Face: Normocephalic, atraumatic. Eyes: Pupils equal round and reactive to light, extra-ocular motions intact. Lids and lashes normal. Conjunctiva and sclera are non-icteric and not injected. Cornea within normal limits. Periorbital areas with no swelling, redness, or edema. Neck: Trachea midline, no thyromegaly or masses palpated, and no cervical lymphadenopathy. Supple, full range of motion without nuchal rigidity, or vertebral point tenderness. No Meningismus. Chest/axilla: Normal chest wall appearance and motion. Nontender with no deformity. No lesions are appreciated. Cardiovascular: Regular rate and rhythm with a normal S1 and S2. No gallops, murmurs, or rubs. Normal PMI, no JVD. No pulse deficits. Respiratory: Lungs have equal breath sounds bilaterally, clear to auscultation and percussion. No rales, rhonchi or wheezes noted. No increased work of breathing, no retractions or nasal flaring. Abdomen/GI: Soft, non-tender, with normal bowel sounds. No distension or tympany. No guarding or rebound. No evidence of tenderness throughout. Back: No spinal tenderness. No costovertebral tenderness. Full range of motion. Skin: Warm, dry with normal turgor. Normal color with no rashes, no lesions, and no evidence of cellulitis. Neuro: Awake and alert, GCS 15, oriented to person, place, time, and situation. Cranial nerves II-XII grossly intact. Motor strength 5/5 in all extremities. Sensory grossly intact. Cerebellar exam normal. Normal gait. Psych: Awake, alert, with orientation to person, place and time. Behavior, mood, and affect are within normal limits. 09:58 Musculoskeletal/extremity: Mild tenderness to the anterior superior part of her foot at the talus. No break in skin, swelling or erythema noted. Patient is ambulatory. There is no foot drop. Mild weakness in the entire left lower leg noted however this is chronic.. Vital Signs: 08:40 BP 99 / 56; Pulse 75; Resp 16; Temp 97.6; Pulse Ox 98% ; Weight 77.11 kg; Height 5 ft. ll1 5 in. ; Pain 7/10; 09:18 BP 96 / 59; Pulse 66; Resp 17; Pulse Ox 98% on R/A; MAP 71 mmHg; nj1 08:40 Body Mass Index 28.29 (77.11 kg, 165.1 cm) ll1 08:40 Pain Scale: Adult ll1 MDM: 08:24 Patient medically screened. sp3 09:58 Data reviewed: vital signs, nurses notes, radiologic studies. ED course: 88-year-old sp3 female with left foot pain which is likely chronic in nature and related to myeloma versus new set of radicular symptoms from her back. X-ray of the foot is negative on my read. I have advised her to follow back up with Dr. Donahue and we discussed her symptoms as well as suggest getting an MRI of the lower spine. Disposition discharged with follow-up with oncology and continue management by them. No further emergency in the ED and patient will be safely discharged.. 01/18 09:00 Order name: Foot Left 3 View XRAY; Complete Time: 10:02 sp3 Administered Medications: No medications were administered Disposition Summary: 01/19/24 10:00 Discharge Ordered Notes: Location: Home sp3 Condition: Stable sp3 Diagnosis - Pain in left foot sp3 Followup: sp3 - With: Private Physician - When: Upon discharge from the Emergency Department - Reason: Continuance of care Forms: - Medication Reconciliation Form sp3 - Thank You Letter sp3 - Antibiotic Education sp3 - Prescription Opioid Use sp3 - Patient Portal Instructions sp3 - Leadership Thank You Letter sp3 Signatures: Dispatcher [employer] Liza Gray RN RN ll1 Caleb Larson MD MD sp3
--- NOTE | 2024-01-19 10:00 | RAD REPORT ---
EXAM DESCRIPTION: RAD - Foot Left 3 View - 01/19/2024 9:22 am CLINICAL HISTORY: PAIN COMPARISON: <Comparisons> TECHNIQUE: Left foot, 3 views. FINDINGS: No fracture, dislocation or periosteal reaction. Mild degenerative changes. Moderate calca regino spur. No air or foreign body in the soft tissues. IMPRESSION: No acute osseous abnormality. Moderate calcaneal spur. Mild degenerative changes.
[2024-01-19 10:45] VITALS: BP 96/59; TEMP 97.6; O2SAT 98
== END ==
LOC: ER 08:14
DX: M79.672 Pain in left foot (principal); Z85.79 Personal history of other malignant neoplasms of lymphoid, hematopoietic and related tissues